=== PATIENT | female | born 1970 | race Caucasian/White ===

== ENCOUNTER 2017-03-03 11:30 | Emergency (ER) | payer MEDICAID ==
[~2017-03-03] VITALS: Ht 157.5 cm; Wt 58.5 kg
[~2017-03-03 11:30] MED LIST: ACET500T98; ALPR0.25 PO; DIAZ-90 PO; LORA-441 PO; NAPR-260 PO
[2017-03-03 11:32] VITALS: Ht 157.5 cm; Wt 58.5 kg
[2017-03-03] MEDS ORDERED: KETOROLAC 60 MG INJ IM STA (13:30)
[2017-03-03] MEDS ORDERED: IBUP-1542 PO (15:57)
--- NOTE | 2017-03-03 16:29 | RADRPT ---
PROCEDURE: XR, right knee. CLINICAL INDICATION: Pain. TECHNIQUE: 3 views of the knee were obtained. The images reviewed on a PACS workstation. COMPARISON: None available. FINDINGS: The osseous structures, articular spaces, and surrounding soft tissues of the knee are all unremarka ble. No acute fracture or dislocation is seen. There is mild to moderate joint effusion. No radio paque foreign body is identified. Alignment is anatomic. IMPRESSION: 1. Mild to moderate joint effusion. RPTAT: GG .Salbador Braswell MD, MD Date Time Electronically viewed and signed by .Salbador Braswell MD, on 03/03/2017 16:29 .Y/
--- NOTE | 2017-03-03 17:18 | ERD ---
ER Documentation Chief Complaint Date/Time DATE: 03/03/17 TIME: 17:14 Chief Complaint right knee pain after a fall HPI This is a 46-year-old female presents today after she fell onto her right knee yesterday. Patient states that it is painful for her to bend her knee. Pain is severe and constant, worse with movement. Patient tried putting VapoRub on her knee, she states that this helped. Patient denies any numbness or tingling of the lower extremity. She denies any fevers or chills. ROS 12 point review of systems was done, all negative except per HPI. Medications Home Meds Active Scripts Ibuprofen* (Motrin*) 600 Mg Tab, 600 MG PO Q6, #30 TAB Prov:BRYON PATTEN 03/03/17 Diazepam* (Valium*) 5 Mg Tablet, 5 MG PO Q8 Y for MUSCLE SPASMS, #10 TAB Prov:FORTINO PARRA PA-C 04/30/16 Naproxen* (Naprosyn*) 500 Mg Tablet, 500 MG PO BID Y for PAIN AND/OR INFLAMMATION, #30 TAB Prov:FORTINO PARRA PA-C 04/30/16 Alprazolam* (Xanax*) 0.25 Mg Tablet, 0.25 MG PO Q8H Y for ANXIETY, #10 TAB Prov:TETE HERNANDEZ NP 03/07/16 Lorazepam* (Ativan*) 0.5 Mg Tablet, 0.5 MG PO HS Y for ANXIETY, #5 TAB Prov:FORTINO PARRA PA-C 09/19/15 Reported Medications Acetaminophen (Tylenol) 500 Mg Tab, PRN 01/02/13 Allergies Allergies: Coded Allergies: No Known Allergy (Unverified , 03/07/16) PMhx/Soc History of Surgery: No Anesthesia Reaction: No Hx Neurological Disorder: No Hx Respiratory Disorders: No Hx Cardiac Disorders: No Hx Psychiatric Problems: No Hx Miscellaneous Medical Probl: No Hx Alcohol Use: No Hx Substance Use: No Hx Tobacco Use: No Smoking Status: Never smoker Physical Exam Vitals Vital Signs Date Time Temp Pulse Resp B/P Pulse Ox O2 Delivery O2 Flow Rate FiO2 03/03/17 11:32 98.1 81 18 127/60 99 Physical Exam GENERAL: The patient is well developed and appropriate for usual state of health , in no apparent distress. HEENT: Atraumatic. CHEST: Clear to auscultation bilaterally. There are no rales, wheezes or rhonchi. HEART: Regular rate and rhythm. No murmurs, clicks, rubs or gallops. EXTREMITIES: right knee: Patient is tender to palpation along the joint line of the right knee, painful and limited flexion of the right knee. Negative anterior drawer negative posterior drawer negative Lockman test. No ankle pain , normal range of motion of her ankle. Intact to L4 L5-S1. NEURO: Alert and oriented. SKIN: The skin is warm and dry. Results 24 hrs Current Medications Medications (Trade) Dose Ordered Sig/Alise Route PRN Reason Start Time Stop Time Status Last Admin Dose Admin Ketorolac Tromethamine (Toradol) 60 mg ONCE STAT IM 03/03/17 13:30 03/03/17 13:31 DC 03/03/17 13:53 Procedures/MDM This is a 38-year-old female that presents to the ER with right knee pain. At this time there is no evidence of fracture dislocation. Patient did have a small effusion on the knee which may represent a knee sprain versus ligament and meniscus tear. I cannot rule out ligament or meniscus tear as patient will need an outpatient MRI for this. Patient will be sent home with a knee immobilizer and with crutches. Patient was neurovascularly intact before and after splint application. Patient is to ambulate in the ER, she is afebrile and well-appearing. She is to follow-up with her primary care doctor within 1- 2 days return to ER sooner if symptoms worsen. Patient may also need to follow- up with an orthopedic doctor. Patient my medical decision making with the patient she understands and agrees with plan. Departure Diagnosis: Primary Impression: Knee pain Condition: Stable Patient Instructions: Knee Sprain Additional Instructions: Call your primary care doctor TOMORROW for an appointment during the next 1-2 days.See the doctor sooner or return here if your condition worsens before your appointment time. BRYON PATTEN March 03, 2017 17:18
== END 2017-03-03 22:34 | disposition home or self-care (01) ==
LOC: FTE 11:30
DX: M25.561 Pain in right knee (principal)
CPT/HCPCS: 29505; 73562; 96372; J1885; Z7502

== ENCOUNTER 2017-07-16 20:45 | Emergency (ER) | payer MEDICAID ==
[~2017-07-16] VITALS: Ht 162.6 cm; Wt 58.0 kg
[~2017-07-16 20:45] MED LIST changes: +IBUP-1542 PO
[2017-07-16 20:57] VITALS: Ht 162.6 cm; Wt 58.0 kg
--- NOTE | 2017-07-17 00:23 | RADRPT ---
PROCEDURE: Chest. CLINICAL INDICATION: Chest pain. TECHNIQUE: Single frontal view of the chest was obtained. COMPARISON: 03/07/2016. FINDINGS: The cardiac silhouette is within normal limits. The aortic arch is unremarkable. There is no focal consolidation, vascular congestion or pleural effusion. There is no pneumothorax. IMPRESSION: No evidence for active cardiopulmonary disease. .Elmer Irby MD, Date Time Electronically viewed and signed by .Elmer Irby MD, on 07/17/2017 00:23 .T/
[2017-07-17] MEDS ORDERED: SULF1TAB31 PO (00:54)
[2017-07-17] MEDS ORDERED: CEPH-443 PO (00:54)
[2017-07-17] MEDS ORDERED: IBUP-1542 PO (00:55)
--- NOTE | 2017-07-17 01:03 | ERD ---
ER Documentation Chief Complaint Date/Time DATE: 07/17/17 TIME: 00:56 Chief Complaint abscess for 8 days under L arm HPI Patient is a 38-year-old female who presents emergency department for concerns of the abscess in her left axilla 1 week. Patient states the abscess has been growing in size. Patient reports redness and swelling. Patient denies any active bleeding or discharge. Patient denies any fevers or chills. Patient does admit to an abscess at the current site twice in the past. Patient states 2 days ago she developed left-sided chest pain. Patient is unsure of the pain is radiating over from the left axilla abscess. Pain is constant and non- pleuritic. Patient denies any shortness of breath, nausea, vomiting, diaphoresis , left upper extremity pain or loss of consciousness. ROS All systems reviewed and are negative except as per history of present illness. Medications Home Meds Active Scripts Ibuprofen* (Motrin*) 600 Mg Tab, 600 MG PO Q6, #30 TAB Prov:VIRA RAZA PA-C 07/17/17 Cephalexin* (Keflex*) 500 Mg Capsule, 500 MG PO TID for 10 Days, CAP Prov:VIRA RAZA PA-C 07/17/17 Sulfamethoxazole/Trimethoprim* (Bactrim Ds* Tablet) 1 Each Tablet, 1 TAB PO BID , #20 TAB Prov:VIRA RAZA PA-C 07/17/17 Ibuprofen* (Motrin*) 600 Mg Tab, 600 MG PO Q6, #30 TAB Prov:BRYON PATTEN 03/03/17 Diazepam* (Valium*) 5 Mg Tablet, 5 MG PO Q8 Y for MUSCLE SPASMS, #10 TAB Prov:FORTINO PARRA PA-C 04/30/16 Naproxen* (Naprosyn*) 500 Mg Tablet, 500 MG PO BID Y for PAIN AND/OR INFLAMMATION, #30 TAB Prov:FORTINO PARRA PA-C 04/30/16 Alprazolam* (Xanax*) 0.25 Mg Tablet, 0.25 MG PO Q8H Y for ANXIETY, #10 TAB Prov:TETE HERNANDEZ NP 03/07/16 Lorazepam* (Ativan*) 0.5 Mg Tablet, 0.5 MG PO HS Y for ANXIETY, #5 TAB Prov:FORTINO PARRA Allen WISEMAN 09/19/15 Reported Medications Acetaminophen (Tylenol) 500 Mg Tab, PRN 01/02/13 Allergies Allergies: Coded Allergies: No Known Allergy (Unverified , 03/07/16) PMhx/Soc History of Surgery: No Anesthesia Reaction: No Hx Neurological Disorder: No Hx Respiratory Disorders: No Hx Cardiac Disorders: No Hx Psychiatric Problems: No Hx Miscellaneous Medical Probl: No Hx Alcohol Use: No Hx Substance Use: No Hx Tobacco Use: No Physical Exam Vitals Vital Signs Date Time Temp Pulse Resp B/P Pulse Ox O2 Delivery O2 Flow Rate FiO2 07/17/17 01:39 65 16 127/78 98 Room Air 07/16/17 20:57 97.8 63 18 138/80 100 Physical Exam GENERAL: Well-developed, well-nourished female. Appears in no acute distress. Speaking in full sentences. HEAD: Normocephalic, atraumatic. EYES: Pupils are equally reactive bilaterally. EOMs grossly intact. No conjunctival erythema. ENT: Moist mucous membranes. No uvula deviation. No kissing tonsils. NECK: Supple. No meningismus. Normal range of motion of the neck. LUNG: Clear to auscultation bilaterally. No rhonchi, wheezing, rales or coarse breath sounds. HEART: Regular rate and rhythm. No murmurs, rubs or gallops. CHEST WALL: Tender to palpation of the left chest wall. LEFT AXILLA: 3 cm abscess, cyst, circular noted. Redness, minimal warmth noted. + Fluctuance and induration noted. EXTREMITIES: Equal pulses bilaterally. No peripheral clubbing, cyanosis or edema. No unilateral leg swelling. NEUROLOGIC: Alert and oriented. Moving all four extremities without any difficulty. Normal speech. Steady gait. SKIN: Normal color. Warm and dry. No rashes or lesions. Results 24 hrs Laboratory Tests Test 07/17/17 00:27 Troponin I < 0.012ng/ml Procedures/MDM ED COURSE: The patient was stable throughout ED course. I kept the patient and/or family informed of laboratory and diagnostic imaging results throughout the ED course. EKG: Read by Dr. Hensley, attending physician. EKG shows sinus bradycardia at a rate of 57 bpm. No arrhythmias, acute ST elevations or T wave changes were noted. DIAGNOSTIC IMAGING: Read by radiologist. Patient: SHAN HUFF : 1970 Age: 46 Sex: F MR #: [id number] DOS: 07/16/17 2343 Ordering MD: VIRA RAZA PA-C Location: [facility] Room/Bed: PROCEDURE: Chest. CLINICAL INDICATION: Chest pain. TECHNIQUE: Single frontal view of the chest was obtained. COMPARISON: 03/07/2016. FINDINGS: The cardiac silhouette is within normal limits. The aortic arch is unremarkable. There is no focal consolidation, vascular congestion or pleural effusion. There is no pneumothorax. IMPRESSION: No evidence for active cardiopulmonary disease. .Elmer Irby MD, MD Date Time Electronically viewed and signed by .Elmer Irby MD, MD on 07/17/2017 00:23 .T/ CC: VIRA RAZA PA-C PROCEDURES: INCISION AND DRAINAGE: The patient was verbally consented prior to procedure. Patient was explained the risks, benefits and alternatives to this procedure. Location: L axilla Abscess size: 3 cm, round Anesthesia: local 1% lidocaine, 5 cc Preparation: The area was prepped in a sterile fashion using betadine x3 cleanses. A sterile field was prepared. Technique: A sterile 11 blade scalpel was used to make a 1 cm linear incision into the abscess. Procedure: A midline abscess incision was made using a sterile scalpel in a linear fashion. Purulent material was expressed with direct pressure. Blunt probing was used to break up loculations. Bleeding was minimal. Packing: half iodoform packing was placed into the wound. The patient tolerated the procedure well with no complications. The wound was dressed in sterile gauze. The patient was neurovascularly intact post- procedure. Post-procedural wound care was discussed with the patient. MEDICAL DECISION MAKING: Patient is a 46-year-old female presents for concerns of a left axilla abscess 8 days. Patient also reported left-sided chest pain which started 2 days ago. Patient denies any shortness of breath, nausea, vomiting, diaphoresis, radiating pain or loss of consciousness. Vital signs were reviewed. Patient is afebrile. Patient was not hypoxic. Patient was hemodynamically stable. Patient did have reproducible pain of the left chest wall. EKG was obtained. Reviewed by attending physician. EKG showed sinus bradycardia. Chest x-ray was unremarkable. Troponin was negative. Incision and drainage was performed of the patient's left axilla abscess. Purulent discharge was expressed from the abscess site. At this time, the patient presentation is most consistent with abscess and chest wall pain secondary to abscess. Low suspicion for ACS, pericarditis, arrhythmia, pneumothorax, pneumonia, aortic dissection or PE. Low suspicion for deep space infection, neurovascular injury. PRESCRIPTION: Bactrim, Keflex, ibuprofen DISCHARGE: At this time, patient is stable for discharge and outpatient management. She was given a copy of all imaging studies. Patient is advised to return in 2 days for wound recheck. Patient advised to return sooner for any new or worsening symptoms including but not limited to fevers, chills, redness, swelling, worsening pain, SOB or LOC. The patient and/or family expressed understanding of and agreement with this plan. All questions were answered. Home care instructions were provided. Disclaimer: Inadvertent spelling and grammatical errors are likely due to EHR/ dictation software use and do not reflect on the overall quality of patient care. Also, please note that the electronic time recorded on this note does not necessarily reflect the actual time of the patient encounter. Departure Diagnosis: Primary Impression: Abscess Condition: Stable Patient Instructions: Abscess, Incision And Drainage Referrals: [facility] YOU HAVE RECEIVED A MEDICAL SCREENING EXAM AND THE RESULTS INDICATE THAT YOU DO NOT HAVE A CONDITION THAT REQUIRES URGENT TREATMENT IN THE EMERGENCY DEPARTMENT. FURTHER EVALUATION AND TREATMENT OF YOUR CONDITION CAN WAIT UNTIL YOU ARE SEEN IN YOUR DOCTORS OFFICE WITHIN THE NEXT 1-2 DAYS. IT IS YOUR RESPONSIBILITY TO MAKE AN APPOINTMENT FOR FOLOW-UP CARE. IF YOU HAVE A PRIMARY DOCTOR --you should call your primary doctor and schedule an appointment IF YOU DO NOT HAVE A PRIMARY DOCTOR YOU CAN CALL OUR PHYSICIAN REFERRAL HOTLINE AT IF YOU CAN NOT AFFORD TO SEE A PHYSICIAN YOU CAN CHOSE FROM THE FOLLOWING [facility] [address] [facility]. [facility] [address] [facility] [address] [facility] [address] [facility] [address] [facility]. [facility] [address] [facility] [facility] YOU HAVE RECEIVED A MEDICAL SCREENING EXAM AND THE RESULTS INDICATE THAT YOU DO NOT HAVE A CONDITION THAT REQUIRES URGENT TREATMENT IN THE EMERGENCY DEPARTMENT. FURTHER EVALUATION AND TREATMENT OF YOUR CONDITION CAN WAIT UNTIL YOU ARE SEEN IN YOUR DOCTORS OFFICE WITHIN THE NEXT 1-2 DAYS. IT IS YOUR RESPONSIBILITY TO MAKE AN APPOINTMENT FOR FOLOW-UP CARE. IF YOU HAVE A PRIMARY DOCTOR --you should call your primary doctor and schedule and appointment IF YOU DO NOT HAVE A PRIMARY DOCTOR YOU CAN CALL OUR PHYSICIAN REFERRAL HOTLINE AT . IF YOU CAN NOT AFFORD TO SEE A PHYSICIAN YOU CAN CHOSE FROM THE FOLLOWING [facility] INSTITUTIONS: [facility] [address] [place] [address] [facility] [address] [place] [address] [facility] + [facility] [address] [place] [address] Additional Instructions: Return to this facility in 2 DAYS for a follow-up exam.Return sooner if your condition worsens. VIRA RAZA PA-C Jul 17, 2017 01:03
[2017-07-17 01:39] VITALS: BP 127/78; PULSE 65; RESP 16
== END 2017-07-17 01:42 | disposition home or self-care (01) ==
LOC: FTE 20:45
DX: L02.412 Cutaneous abscess of left axilla (principal); R07.9 Chest pain, unspecified
CPT/HCPCS: 10061; 71010; 84484; 93005; Z7502

== ENCOUNTER 2017-07-19 19:35 | Emergency (ER) | payer MEDICAID ==
[~2017-07-19] VITALS: Ht 160 cm; Wt 58.0 kg
[~2017-07-19 19:35] MED LIST changes: +CEPH-443 PO; +SULF1TAB31 PO
[2017-07-19 19:38] VITALS: Ht 160 cm; Wt 58.0 kg
--- NOTE | 2017-07-19 20:45 | ERD ---
ER Documentation Chief Complaint Date/Time DATE: 07/19/17 TIME: 20:35 Chief Complaint wound check left axilla HPI 40-year-old female presents emergency department for a wound check to her left axilla. Stated that she was here 3 days ago for a left axillary abscess, incision and drainage was done with packing. Stated that she accidentally pulled the packing yesterday while she was changing the dressing. Denies headache, dizziness, blurry vision, neck pain, shoulder pain, chest pain , back pain, abdominal pain, nausea, vomiting, urinary symptoms, numbness or tingling sensation, fever, chills. No known drug allergies. No past medical history. No surgeries. Not working at this time. Denies smoking, use of alcohol, use of illegal drugs. ROS All systems reviewed and are negative except as per history of present illness. Medications Home Meds Active Scripts Ibuprofen* (Motrin*) 600 Mg Tab, 600 MG PO Q6, #30 TAB Prov:VIRA RAZA PA-C 07/17/17 Cephalexin* (Keflex*) 500 Mg Capsule, 500 MG PO TID for 10 Days, CAP Prov:VIRA RAZA PA-C 07/17/17 Sulfamethoxazole/Trimethoprim* (Bactrim Ds* Tablet) 1 Each Tablet, 1 TAB PO BID , #20 TAB Prov:VIRA RAZA PA-C 07/17/17 Ibuprofen* (Motrin*) 600 Mg Tab, 600 MG PO Q6, #30 TAB Prov:BRYON PATTEN 03/03/17 Diazepam* (Valium*) 5 Mg Tablet, 5 MG PO Q8 Y for MUSCLE SPASMS, #10 TAB Prov:FORTINO PARRA PA-C 04/30/16 Naproxen* (Naprosyn*) 500 Mg Tablet, 500 MG PO BID Y for PAIN AND/OR INFLAMMATION, #30 TAB Prov:FORTINO PARRA PA-C 04/30/16 Alprazolam* (Xanax*) 0.25 Mg Tablet, 0.25 MG PO Q8H Y for ANXIETY, #10 TAB Prov:TETE HERNANDEZ NP 03/07/16 Lorazepam* (Ativan*) 0.5 Mg Tablet, 0.5 MG PO HS Y for ANXIETY, #5 TAB Prov:BASHARDOUST,NUSHA Allen WISEMAN 09/19/15 Reported Medications Acetaminophen (Tylenol) 500 Mg Tab, PRN 01/02/13 Allergies Allergies: Coded Allergies: No Known Allergy (Unverified , 03/07/16) PMhx/Soc History of Surgery: No Anesthesia Reaction: No Hx Neurological Disorder: No Hx Respiratory Disorders: No Hx Cardiac Disorders: No Hx Psychiatric Problems: No Hx Miscellaneous Medical Probl: No Hx Alcohol Use: No Hx Substance Use: No Hx Tobacco Use: No Smoking Status: Never smoker Physical Exam Vitals Vital Signs Date Time Temp Pulse Resp B/P Pulse Ox O2 Delivery O2 Flow Rate FiO2 07/19/17 19:38 98.4 79 20 118/55 98 Physical Exam Const: [] Head: Atraumatic Eyes: Normal Conjunctiva ENT: Normal External Ears, Nose and Mouth. Neck: Full range of motion..~ No meningismus. Resp: Clear to auscultation bilaterally Cardio: Regular rate and rhythm, no murmurs Abd: Soft, non tender, non distended. Normal bowel sounds Skin: No petechiae or rashes. Left axilla area has abscess that was drained. No discharge. No bleeding. No packing noted. No induration. Left elbow/wrist/ hand/shoulder is unremarkable. No neurovascular deficits. Back: No midline or flank tenderness Ext: No cyanosis, or edema Neur: Awake and alert Psych: Normal Mood and Affect Procedures/MDM 40-year-old female presents emergency department for a wound check to her left axilla. Stated that she was here 3 days ago for a left axillary abscess, incision and drainage was done with packing. Stated that she accidentally pulled the packing yesterday while she was changing the dressing. Denies headache, dizziness, blurry vision, neck pain, shoulder pain, chest pain , back pain, abdominal pain, nausea, vomiting, urinary symptoms, numbness or tingling sensation, fever, chills. No known drug allergies. No past medical history. No surgeries. Not working at this time. Denies smoking, use of alcohol, use of illegal drugs. Physical exam: Left axilla area has abscess that was drained. No discharge. No packing noted. No bleeding. No induration. Left elbow/wrist/hand/shoulder is unremarkable. No neurovascular deficits. Treatment: Wound dressing was changed. Re-evaluation: Dressing is dry and intact. No active bleeding. Left elbow/wrist/ hand/shoulder is unremarkable. No neurovascular deficits. Prescription: Instructed to continue and complete her Keflex and Bactrim that was previously prescribed. Follow-up with primary care physician the next 24-48 hours. Come back in 2 days for a wound check. Come back here in the emergency department for any new symptoms or any worsening of symptoms. All questions and concerns are answered. Patient verbalized understanding and agreed with the plan of care. Hemodynamically stable discharge. Departure Diagnosis: Primary Impression: Encounter for wound re-check Condition: Stable Additional Instructions: Follow-up with primary care physician the next 24-48 hours. Come back in 2 days for a wound check. Come back here in the emergency department for any new symptoms or any worsening of symptoms. All questions and concerns are answered. Patient verbalized understanding and agreed with the plan of DAVIDA Worrell Jul 19, 2017 20:45
== END 2017-07-19 21:04 | disposition home or self-care (01) ==
LOC: FTE 19:35
DX: Z48.01 Encounter for change or removal of surgical wound dressing (principal)
CPT/HCPCS: 99281

== ENCOUNTER 2017-07-23 20:03 | Emergency (ER) | payer MEDICAID ==
[~2017-07-23] VITALS: Ht 154.9 cm; Wt 57.0 kg
[2017-07-23 20:40] VITALS: Ht 154.9 cm; Wt 57.0 kg
--- NOTE | 2017-07-23 22:36 | ERA ---
ER Documentation Chief Complaint Date/Time DATE: 07/23/17 TIME: 22:33 Chief Complaint Lt armpit abscess x7 days. Here for recheck, second time HPI Otherwise healthy 46-year-old female presenting for wound check. Patient was seen 7 days ago with I&D. Vaccination status up-to-date. Denies any complications including continued discharge, pain, erythema, numbness, tingling. Has been taking antibiotics as prescribed and reports no adverse reactions. Patient has no other complaints and describes no other associated manifestations. Nursing notes have been reviewed and are consistent with history given. ROS All systems reviewed and are negative except as per history of present illness. Medications Home Meds Active Scripts Ibuprofen* (Motrin*) 600 Mg Tab, 600 MG PO Q6, #30 TAB Prov:VIRA RAZA PA-C 07/17/17 Cephalexin* (Keflex*) 500 Mg Capsule, 500 MG PO TID for 10 Days, CAP Prov:VIRA RAZA PA-C 07/17/17 Sulfamethoxazole/Trimethoprim* (Bactrim Ds* Tablet) 1 Each Tablet, 1 TAB PO BID , #20 TAB Prov:VIRA RAZA PA-C 07/17/17 Ibuprofen* (Motrin*) 600 Mg Tab, 600 MG PO Q6, #30 TAB Prov:BRYON PATTEN 03/03/17 Diazepam* (Valium*) 5 Mg Tablet, 5 MG PO Q8 Y for MUSCLE SPASMS, #10 TAB Prov:FORTINO PARRA PA-C 04/30/16 Naproxen* (Naprosyn*) 500 Mg Tablet, 500 MG PO BID Y for PAIN AND/OR INFLAMMATION, #30 TAB Prov:FORTINO PARRA PA-C 04/30/16 Alprazolam* (Xanax*) 0.25 Mg Tablet, 0.25 MG PO Q8H Y for ANXIETY, #10 TAB Prov:TETE HERNANDEZ NP 03/07/16 Lorazepam* (Ativan*) 0.5 Mg Tablet, 0.5 MG PO HS Y for ANXIETY, #5 TAB Prov:FORTINO PARRA PA-C 09/19/15 Reported Medications Acetaminophen (Tylenol) 500 Mg Tab, PRN 01/02/13 Allergies Allergies: Coded Allergies: No Known Allergy (Unverified , 07/23/17) PMhx/Soc History of Surgery: No Anesthesia Reaction: No Hx Neurological Disorder: No Hx Respiratory Disorders: No Hx Cardiac Disorders: No Hx Psychiatric Problems: No Hx Miscellaneous Medical Probl: No Hx Alcohol Use: No Hx Substance Use: No Hx Tobacco Use: No Smoking Status: Never smoker Physical Exam Vitals Vital Signs Date Time Temp Pulse Resp B/P Pulse Ox O2 Delivery O2 Flow Rate FiO2 07/23/17 20:40 98.5 72 18 122/66 99 Physical Exam Const: Well-appearing 46-year-old female no acute distress Head: Atraumatic Eyes: Normal Conjunctiva ENT: Normal External Ears, Nose and Mouth. Neck: Full range of motion..~ No meningismus. Resp: Clear to auscultation bilaterally Cardio: Regular rate and rhythm, no murmurs Abd: Soft, non tender, non distended. Normal bowel sounds Skin: 4 cm minimally indurated well-healing abscess under the left axilla Back: No midline or flank tenderness Ext: No cyanosis, or edema Neur: Awake and alert Psych: Normal Mood and Affect Procedures/MDM Well-appearing 46-year-old female in no acute distress presenting for wound check is 7 days status post I&D for abscess in the left axilla as described in history and physical examination. I have no suspicion for current/spreading/ systemic infection. Further antibiotics are not needed at this time. Patient is still finishing the antibiotics prescribed during her last visit. I have spoke with the patient regarding their condition and future management. They have verbally responded that they understand their status and treatment plan. The patients vitals are stable, and their current condition is appropriate for discharge. The patient will be given discharge instructions with return precautions. Departure Diagnosis: Primary Impression: Encounter for wound re-check Condition: Stable Patient Instructions: Post Op Wound Check, Pain Additional Instructions: Follow up with your PCP within the next 1-3 days for a more thorough evaluation and a possible referral to a specialist. Return the the emergency department immediately if symptoms worsen or change. If you have any questions regarding medications, ask your pharmacist or us before you leave. If any adverse reactions occur while taking your medications, discontinue the treatment and return to the emergency department immediately. Take your medications as directed, and complete the entire course of treatment. NAT FOWLER PA-C Jul 23, 2017 22:36
== END 2017-07-24 00:34 | disposition left against medical advice (07) ==
LOC: FTE 20:03
DX: Z48.01 Encounter for change or removal of surgical wound dressing (principal)
CPT/HCPCS: 99281